=== PATIENT | male | born 1955 | race Caucasian/White ===

== ENCOUNTER 2017-01-30 20:05 | Inpatient (IN) | payer BC, OTHER ==
[~2017-01-30] VITALS: Ht 170.2 cm; Wt 76.7 kg
[~2017-01-30 20:05] MED LIST: CLRD24 PO
[2017-01-30] MEDS ORDERED: ALUMINUM/MAGNESIUM SUSP 30 ML UDC PO STA (20:52)
[2017-01-30] MEDS ORDERED: ASPIRIN 81 MG CHEW PO STA (20:52)
--- NOTE | 2017-01-30 21:03 | EMERGENCY ROOM VISIT NOTE ---
History Report prepared by Isac: Mara Morales Under the Supervision of: Dr. Evaristo Zuleta D.O. First contact with patient: 20:50 Chief Complaint: CHEST PAIN Stated Complaint: BURNING IN CHEST,ARM DISCOMFORT,SORE THROAT Nursing Triage Summary: Patient states "I had some trouble with my left arm. I was running and I had trouble when I was breathing. Like it was burning. It got so bad I had to quit running and that's never happened." Denies chest pain, shortness of breath, nausea, and diaphoresis. Patient reports this is third episode. History of Present Illness The patient is a 61 year old male who presents to the Emergency Room with complaints of resolved burning sensation in chest beginning just prior to arrival. The patient states that he is an avid runner. The past 3 times he has gone for a run he begins to develop this burning sensation in the chest with pain going into his left arm. The patient notes that each of these 3 episodes have worsened in severity with tonight being the worst. He notes that the pain begins to set in on the 1/2 mile ghada. The pain stays in his arm for a while even after he stops running. The patient denies cardiac history, recent traveling, shortness of breath or urinary symptoms. 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 Review of Systems See HPI for pertinent positives & negatives. A total of 10 systems reviewed and were otherwise negative. Past Medical & Surgical Medical Problems: (1) Diverticulitis Family History Diabetes mellitus Hypertension Social History Smoking Status: Never Smoker Alcohol Use: occasionally Drug Use: none Housing Status: lives with family Occupation Status: employed Current/Historical Medications Scheduled Aspirin (Aspirin Ec), 81 MG PO DAILY Cholecalciferol (Vitamin D3), 1,000 INTER.UNIT PO DAILY Multivitamins/Minerals (Mvi With Minerals), 1 TAB PO DAILY Vitamin E (Vitamin E 400 Iu), 400 INTER.UNIT PO DAILY Allergies Coded Allergies: No Known Allergies (Unverified , 03/10/15) Physical Exam Vital Signs Date Time Temp Pulse Resp B/P Pulse Ox O2 Delivery O2 Flow Rate FiO2 01/30/17 23:02 63 16 115/79 96 Room Air 01/30/17 22:18 75 01/30/17 21:37 99 Room Air 01/30/17 21:37 99 Room Air 01/30/17 21:24 83 16 121/77 96 Room Air 01/30/17 20:10 37.1 84 18 142/89 96 Room Air Physical Exam GENERAL: Patient is awake, alert, and in no acute distress. Patient is resting comfortably and showing no signs of anxiety EYES: The conjunctivae are clear. The pupils are round and reactive. EARS, NOSE, MOUTH AND THROAT: The nose is without any evidence of any deformity. Mucous membranes are moist tongue is midline NECK: The neck is nontender and supple. RESPIRATORY: Normal respiratory effort is noted there is no evidence of wheezing rhonchi or rales CARDIOVASCULAR: Regular rate and rhythm noted there no murmurs rubs or gallops normal S1 normal S2 GASTROINTESTINAL: The abdomen is soft. Bowel sounds are present in all quadrants. Abdomen is nontender MUSCULOSKELETAL/EXTREMITIES: There is no evidence of gross deformity full range of motion is noted in the hips and shoulders SKIN: There is no obvious evidence of any rash. There are no petechiae, pallor or cyanosis noted. NEUROLOGIC: Patient is awake alert and oriented x3 Medical Decision & Procedures ER Provider Diagnostic Interpretation: X-ray results as stated below per interpretation by me and the radiologist. CHEST ONE VIEW PORTABLE CLINICAL HISTORY: Atypical chest pain COMPARISON STUDY: August 2011 FINDINGS: The cardiac and mediastinal contours are normal. There is no evidence of focal pulmonary consolidation. There is no evidence of failure. No pleural effusions are visualized.[ IMPRESSION: No active disease in the chest. Electronically signed by: Rayray Meyers M.D. 01/30/2017 9:33 PM Dictated Date/Time: 01/30/2017 9:33 PM Laboratory Results 01/30/17 21:15 Red Blood Count 5.34, Mean Corpuscular Volume 86.1, Mean Corpuscular Hemoglobin 30.7, Mean Corpuscular Hemoglobin Concent 35.7, Mean Platelet Volume 8.7, Neutrophils (%) (Auto) 61.6, Lymphocytes (%) (Auto) 24.4, Monocytes (%) (Auto) 10.0, Eosinophils (%) (Auto) 3.3, Basophils (%) (Auto) 0.5, Neutrophils # (Auto ) 3.94, Lymphocytes # (Auto) 1.56, Monocytes # (Auto) 0.64, Eosinophils # (Auto ) 0.21, Basophils # (Auto) 0.03 01/30/17 21:15 Test 01/30/17 21:15 01/30/17 21:21 White Blood Count 6.39 K/uL (4.8-10.8) Red Blood Count 5.34 M/uL (4.7-6.1) Hemoglobin 16.4 g/dL (14.0-18.0) Hematocrit 46.0 % (42-52) Mean Corpuscular Volume 86.1 fL (80-100) Mean Corpuscular Hemoglobin 30.7 pg (25-34) Mean Corpuscular Hemoglobin Concent 35.7 g/dl (32-36) Platelet Count 181 K/uL (130-400) Mean Platelet Volume 8.7 fL (7.4-10.4) Neutrophils (%) (Auto) 61.6 % Lymphocytes (%) (Auto) 24.4 % Monocytes (%) (Auto) 10.0 % Eosinophils (%) (Auto) 3.3 % Basophils (%) (Auto) 0.5 % Neutrophils # (Auto) 3.94 K/uL (1.4-6.5) Lymphocytes # (Auto) 1.56 K/uL (1.2-3.4) Monocytes # (Auto) 0.64 K/uL (0.11-0.59) Eosinophils # (Auto) 0.21 K/uL (0-0.5) Basophils # (Auto) 0.03 K/uL (0-0.2) RDW Standard Deviation 39.3 fL (36.4-46.3) RDW Coefficient of Variation 12.5 % (11.5-14.5) Immature Granulocyte % (Auto) 0.2 % Immature Granulocyte # (Auto) 0.01 K/uL (0.00-0.02) Prothrombin Time 9.9 SECONDS (9.0-12.0) Prothromb Time International Ratio 0.9 (0.9-1.1) Activated Partial Thromboplast Time 27.8 SECONDS (21.0-31.0) Partial Thromboplastin Ratio 1.1 Anion Gap 10.0 mmol/L (3-11) Est Creatinine Clear Calc Drug Dose 65.1 ml/min Estimated GFR () 82.9 Estimated GFR (Non- 71.6 BUN/Creatinine Ratio 18.7 (10-20) Calcium Level 9.1 mg/dl (8.5-10.1) Total Bilirubin 0.3 mg/dl (0.2-1) Direct Bilirubin 0.1 mg/dl (0-0.2) Aspartate Amino Transf (AST/SGOT) 22 U/L (15-37) Alanine Aminotransferase (ALT/SGPT) 30 U/L (12-78) Alkaline Phosphatase 94 U/L (45-117) Total Creatine Kinase 106 U/L (39-308) Creatine Kinase MB 3.0 ng/ml (0.5-3.6) Creatine Kinase MB Ratio 2.8 (0-3.0) Total Protein 7.3 gm/dl (6.4-8.2) Albumin 3.8 gm/dl (3.4-5.0) Lipase 198 U/L (73-393) Bedside Troponin I 1.050 ng/ml (0-0.045) Laboratory results per my review. Medications Administered Medications (Trade) Dose Ordered Sig/Leni Route Start Time Stop Time Status Last Admin Dose Admin Aspirin (Aspirin Chew) 324 mg NOW STAT PO 01/30/17 20:52 01/30/17 20:54 DC 01/30/17 20:52 324 MG Al Hydroxide/Mg Hydroxide (Maalox Susp) 30 ml NOW STAT PO 01/30/17 20:52 01/30/17 20:54 DC 01/30/17 20:52 30 ML Heparin Sodium/ Dextrose 1 ea NOW STAT N/A 01/30/17 21:48 01/30/17 21:49 DC 01/30/17 21:48 1 EA Heparin Sodium/ Dextrose (Heparin 25,000 Unit/500ml D5W) 25,000 unit STK-MED ONCE .ROUTE 01/30/17 22:09 01/30/17 22:10 DC 01/30/17 22:48 25,000 UNIT Heparin Sodium (Porcine) (Heparin Sq 5000 Unit/0.5ml) 10,000 unit STK-MED ONCE .ROUTE 01/30/17 22:09 01/30/17 22:10 DC 01/30/17 22:49 6,000 UNIT ECG Indication: chest pain Rate (beats per minute): 77 Rhythm: normal sinus Findings: nonspecific-ST abn (none), no ectopy Change: no significant change (from 08/12/11) ED Course 2052: The patient was evaluated in room B4. A complete history and physical examination were performed. 2051: Maalox Susp 30 ml PO, Aspirin Chew 324 mg PO. 2147: Heparin Sodium/ Dextrose 1 ea N/A. 2148: I spoke with Dr. Joslyn Winters. He recommends adding a beta fauzia to the patient's regimen. 2226: I discussed the patient's case with Dr. Graff - [facility]. The patient will be evaluated for further management. 2230: Upon reevaluation, the patient is hemodynamically stable. I discussed results and treatment plan with the patient. He verbalizes agreement and understanding. I spoke with Dr. Graff of the [facility]. The patient will be evaluated for further management and care. 0900: Lopressor Tab 25 mg PO. Medical Decision Differential diagnosis: Etiologies such as cardiac ischemia, aortic dissection, pulmonary embolism, pneumonia, pneumothorax, musculoskeletal, infections, pericarditis, myocarditis , esophageal rupture, gastrointestinal, as well as others were entertained. Nursing notes reviewed. The patient is a 61-year-old male who presented to the emergency department for an evaluation of chest pain. The patient describes substernal chest pain that he described as a "burning". He states that this pain radiates to his arms. He started noticing this pain a few days ago when he was trying to run. The patient states that over the last few episodes when he was trying to run the chest pain would occur with less and less exertion and was relieved with rest. The patient has no pain at this time. His EKG does not show any acute change from previous however his troponin was elevated. I do feel this represents an anginal pattern. The patient was treated with aspirin in the emergency department. He was also given a beta fauzia as well as IV heparin. I discussed the patient's laboratory and radiographic studies with him. I also discussed the limitations of the emergency department workup for chest pain with him. I discussed his case with the on-call [facility] refrigeration mechanic helper as well as the on -call [facility] hospitalist group. They've agreed to evaluate the patient in the emergency department for further management and disposition. Consults Time Called: 2145 Consulting Physician: Dr. Joslyn Winters Returned Call: [address] Fragin - Cardiology. He recommends adding a beta fauzia to the patient's regimen. Additional Consults: Time Called: 2224 Consulted Physician: Dr. Dajuan SHELBY Returned Call: 2226 Additional Comments: I discussed the patient's case with Dr. Dajuan SHELBY. The patient will be evaluated for further management. Impression Primary Impression: NSTEMI (non-ST elevated myocardial infarction) Additional Impressions: Substernal precordial chest pain Elevated troponin Critical Care I have personally spent greater than 45 minutes of critical care time in the direct management of this patient. This includes bedside care, interpretation of diagnostic studies, and testing, discussion with consultants, patient, and family members, and other required patient management activities. This 45 minutes is in excess of all separately billable procedures. Scribe Attestation The scribe's documentation has been prepared under my direction and personally reviewed by me in its entirety. I confirm that the note above accurately reflects all work, treatment, procedures, and medical decision making performed by me. Departure Information Dispostion Being Evaluated By Hospitalist Referrals Dustin Paulino M.D. (PCP) Problem Qualifiers
[2017-01-30 21:26] LABS: BASO % 0.5 %; BASO ABS # 0.03 K/uL (0-0.2); COMPLETE YES; EOS % 3.3 %; IG% 0.2 %; LYMPH % 24.4 %; LYMPH ABS # 1.56 K/uL (1.2-3.4); MEAN CELL VOLUME 86.1 fL (80-100); MEAN CORPUSCULAR HEMOGLOBIN 30.7 pg (25-34); MEAN CORPUSCULAR HGB CONC 35.7 g/dl (32-36); MEAN PLATELET VOLUME 8.7 fL (7.4-10.4); NEUT % 61.6 %; PLATELET COUNT 181 K/uL (130-400); RED BLOOD COUNT 5.34 M/uL (4.7-6.1); WHITE BLOOD COUNT 6.39 K/uL (4.8-10.8)
--- NOTE | 2017-01-30 21:35 | DIAGNOSTIC IMAGING REPORT ---
CHEST ONE VIEW PORTABLE CLINICAL HISTORY: Atypical chest pain COMPARISON STUDY: August 2011 FINDINGS: The cardiac and mediastinal contours are normal. There is no evidence of focal pulmonary consolidation. There is no evidence of failure. No pleural effusions are visualized.[ IMPRESSION: No active disease in the chest. Electronically signed by: Rayray Meyers M.D. 01/30/2017 9:33 PM Dictated Date/Time: 01/30/2017 9:33 PM
[2017-01-30 21:38] LABS: INR 0.9 (0.9-1.1); PARTIAL THROMBOPLASTIN RATIO 1.1; PROTHROMBIN TIME (PATIENT) 9.9 SECONDS (9.0-12.0)
[2017-01-30] MEDS ORDERED: CHOL1000 PO (21:55)
[2017-01-30] MEDS ORDERED: ASPI81TA28 PO (21:55)
[2017-01-30] MEDS ORDERED: VITA400C3 PO (21:55)
[2017-01-30] MEDS ORDERED: MULT-513 PO (21:55)
[2017-01-30] MEDS ORDERED: HEPARIN SOD 5000 UNIT/0.5 ML CARP ONE (22:09)
[2017-01-30] MEDS ORDERED: HEPARIN 25000 UNIT/500 ML D5W ONE (22:09)
[2017-01-30 22:19] LABS: CALCIUM 9.1 mg/dl (8.5-10.1)
[2017-01-30] MEDS ORDERED: POLYETHYLENE (MIRALAX) 17 GM PACK PO PRN (22:45)
[2017-01-30] MEDS ORDERED: NITROGLYCERIN 0.4 MG SL PER TAB CHARGE SL PRN (22:45)
[2017-01-30] MEDS ORDERED: ACETAMINOPHEN 325 MG TAB PO PRN (22:45)
[2017-01-30] MEDS ORDERED: ZOLPIDEM TARTRATE 5 MG TAB PO PRN (22:45)
[2017-01-30] MEDS ORDERED: MoRPHine SULFATE 2 MG/ML CARP IV PRN (22:45)
[2017-01-30] MEDS ORDERED: MAGNESIUM HYDROXIDE SUSP 30 ML UDC PO PRN (22:45)
[2017-01-30] MEDS ORDERED: ALUMINUM/MAGNESIUM/SIMETH (MAALOX MAX) 30 ML UDC PO PRN (22:45)
[2017-01-30] MEDS ORDERED: ONDANSETRON INJ 2 MG/ML 2 ML VIAL IV PRN (22:45)
--- NOTE | 2017-01-30 22:56 | History and Physical ---
History & Physical Date & Time of Service: Jan 30, 2017 at 22:46 Chief Complaint: Burning In Chest,Arm Discomfort,Sore Throat Primary Care Physician: Dustin Paulino M.D. History of Present Illness Source: patient 61 y/o M who denies active medical issues. He runs 3.5 miles daily. Over the past week he has had a burning sensation in his chest when running. He was unable to complete his run today due to burning, SOB and pain in his L arm. His symptoms resolved with rest. He presented to the hospital where an EKG was within normal limits. An initial troponin however was elevated at 1.0. He denies any active symptoms on admission. Past Medical/Surgical History Denies a history of HTN, HPL, CAD History of diverticulitis Family History Diabetes mellitus Hypertension Father with CAD - at age 94 Social History Social drinker - dose not smoke Smoking Status: Never Smoker Drug Use: none Housing status: lives with family Occupational Status: employed Multi-Drug Resistant Organisms History of MDRO: No Allergies Coded Allergies: No Known Allergies (Unverified , 03/10/15) Home Medications Scheduled Aspirin (Aspirin Ec), 81 MG PO DAILY Cholecalciferol (Vitamin D3), 1,000 INTER.UNIT PO DAILY Multivitamins/Minerals (Mvi With Minerals), 1 TAB PO DAILY Vitamin E (Vitamin E 400 Iu), 400 INTER.UNIT PO DAILY Review of Systems Constitutional: No chills, No fever, No sweats Eyes: No eye pain, No worsening of vision ENT: No hearing loss, No nasal symptoms Respiratory: + shortness of breath, No cough, No sputum, No wheezing Cardiovascular: + chest pain, + problem reported (radiation to L arm), No PND, No orthopnea Abdomen: No nausea, No pain, No vomiting Musculoskeletal: No joint pain, No muscle pain Genitourinary - Male: No dysuria, No hematuria, No urinary frequency, No urinary urgency Neurologic: No memory loss, No paralysis, No weakness Psychiatric: No depression symptoms Endocrine: No fatigue Hematologic / Lymphatic: No abnormal bleeding/bruising Integumentary: No rash Allergic / Immunologic: No environmental allergies Physical Exam Vital Signs Date Time Temp Pulse Resp B/P Pulse Ox O2 Delivery O2 Flow Rate FiO2 01/30/17 22:18 75 01/30/17 21:37 99 Room Air 01/30/17 21:37 99 Room Air 4/27/17 21:24 83 16 121/77 96 Room Air 01/30/17 20:10 37.1 84 18 142/89 96 Room Air General Appearance: WD/WN, no apparent distress Head: normocephalic Eyes: normal inspection, PERRL, EOMI ENT: normal ENT inspection, pharynx normal Neck: supple, no JVD Respiratory/Chest: chest non-tender, lungs clear, normal breath sounds, no respiratory distress, no accessory muscle use Cardiovascular: regular rate, rhythm, no edema, no gallop, no JVD, no murmur, normal peripheral pulses Abdomen/GI: normal bowel sounds, non tender, soft Back: normal inspection, no CVA tenderness Extremities/Musculoskelatal: normal inspection, no calf tenderness, normal capillary refill, no pedal edema, normal range of motion 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, no motor/sensory deficits, alert, normal mood/affect, normal reflexes, oriented x 3 Skin: normal color, warm/dry Diagnostics Laboratory Results Results Past 24 Hours Test 01/30/17 20:52 01/30/17 21:15 01/30/17 21:21 Range/Units Creatine Kinase MB Ratio 0-3.0 White Blood Count 6.39 4.8-10.8 K/uL Red Blood Count 5.34 4.7-6.1 M/uL Hemoglobin 16.4 14.0-18.0 g/dL Hematocrit 46.0 42-52 % Mean Corpuscular Volume 86.1 80-100 fL Mean Corpuscular Hemoglobin 30.7 25-34 pg Mean Corpuscular Hemoglobin Concent 35.7 32-36 g/dl Platelet Count 181 130-400 K/uL Mean Platelet Volume 8.7 7.4-10.4 fL Neutrophils (%) (Auto) 61.6 % Lymphocytes (%) (Auto) 24.4 % Monocytes (%) (Auto) 10.0 % Eosinophils (%) (Auto) 3.3 % Basophils (%) (Auto) 0.5 % Neutrophils # (Auto) 3.94 1.4-6.5 K/uL Lymphocytes # (Auto) 1.56 1.2-3.4 K/uL Monocytes # (Auto) 0.64 0.11-0.59 K/uL Eosinophils # (Auto) 0.21 0-0.5 K/uL Basophils # (Auto) 0.03 0-0.2 K/uL RDW Standard Deviation 39.3 36.4-46.3 fL RDW Coefficient of Variation 12.5 11.5-14.5 % Immature Granulocyte % (Auto) 0.2 % Immature Granulocyte # (Auto) 0.01 0.00-0.02 K/uL Prothrombin Time 9.9 9.0-12.0 SECONDS Prothromb Time International Ratio 0.9 0.9-1.1 Activated Partial Thromboplast Time 27.8 21.0-31.0 SECONDS Partial Thromboplastin Ratio 1.1 Sodium Level 143 136-145 mmol/L Potassium Level 4.0 3.5-5.1 mmol/L Calcium Level 9.1 8.5-10.1 mg/dl Bedside Troponin I 1.050 0-0.045 ng/ml Normal EKG Impression Assessment and Plan 61 y/o M who denies active medical issues. He runs 3.5 miles daily. Over the past week he has had a burning sensation in his chest when running. He was unable to complete his run today due to burning, SOB and pain in his L arm. His symptoms resolved with rest. He presented to the hospital where an EKG was within normal limits. An initial troponin however was elevated at 1.0. He denies any active symptoms on admission. Pt placed on full-dose Heparin, ASA, statin - cardiology notified and will be evaluated for a cath. I have discussed this in detail with the pt. Full code - Full dose Heparin Total time for this admit including review of labs, meds, EKG - discussion with pt and ER attending - 30 min VTE Prophylaxis VTE Risk Assessment Done? Y/N: Yes Risk Level: Low
[2017-01-30 23:01] LABS: BUN/CREATININE RATIO 18.7 (10-20); CKMB/CK RATIO 2.8 (0-3.0); CREATININE 1.1 mg/dl (0.60-1.40)
[2017-01-30 23:43] VITALS: BP 132/81; PULSE 62; TEMP 36.7; O2SAT 96; Ht 170.2 cm; Wt 76.7 kg
[2017-01-31] VITALS (14 sets, daily range): BP systolic 113–127; BP diastolic 67–79; PULSE 57–81; TEMP 36.5–37; O2SAT 92–98
[2017-01-31] MEDS: SODIUM CHLORIDE 0.9% 1000ML 1,000 ML IV SCH (01:00)
[2017-01-31] MEDS ORDERED: HEPARIN 25,000 UNIT/500ML D5W 500 ML IV PRN (01:00)
[2017-01-31 05:35] LABS: PARTIAL THROMBOPLASTIN RATIO 2.3
[2017-01-31] MEDS: ASPIRIN 81 MG ECTAB PO SCH (09:00)
[2017-01-31] MEDS ORDERED: METOPROLOL TARTRATE 25 MG TAB PO SCH (09:00)
[2017-01-31 09:46] LABS: CHOLESTEROL/HDL RATIO 2.3
--- NOTE | 2017-01-31 11:46 | Hospitalist Progress Note ---
Hospitalist Progress Note Date of Service Jan 31, 2017. (Khadra Combs PA-C) Subjective Pt evaluation today including: conversation w/ patient, physical exam, chart review, lab review, review of studies, review of inpatient medication list Patient reports no further chest discomfort. He denies any shortness of breath. He does admit to feeling dizzy earlier this week. No dizziness since admission. He denies any nausea, sweaty or clammy feeling. Additional Comments: 6 system review negative. Please see pertinent positives in the history of present illness section. (Khadra Combs PA-C) Objective Vital Signs Date Time Temp Pulse Resp B/P Pulse Ox O2 Delivery O2 Flow Rate FiO2 01/31/17 11:18 36.6 60 16 117/72 98 Room Air 01/31/17 08:33 36.8 68 16 115/69 97 Room Air 01/31/17 08:00 Room Air 01/31/17 07:33 36.8 68 16 115/69 97 Room Air 01/31/17 04:00 Room Air 01/31/17 03:33 36.5 59 16 122/74 98 Room Air 01/30/17 23:59 Room Air 01/30/17 23:43 36.7 62 16 132/81 96 Room Air 01/30/17 23:02 63 16 115/79 96 Room Air 01/30/17 22:18 75 01/30/17 21:37 99 Room Air 01/30/17 21:37 99 Room Air 01/30/17 21:24 83 16 121/77 96 Room Air 01/30/17 20:10 37.1 84 18 142/89 96 Room Air (Khadra Combs PA-C) Physical Exam General Appearance: no apparent distress Neck: no JVD Respiratory/Chest: + pertinent finding (few crackles at the right base) Cardiovascular: regular rate, rhythm Abdomen: normal bowel sounds, non tender, soft Extremities: non-tender, no pedal edema Neurologic/Psychiatric: no motor/sensory deficits, oriented x 3 Skin: warm/dry (Khadra Combs PA-C) Laboratory Results 01/30/17 21:15 Red Blood Count 5.34, Mean Corpuscular Volume 86.1, Mean Corpuscular Hemoglobin 30.7, Mean Corpuscular Hemoglobin Concent 35.7, Mean Platelet Volume 8.7, Neutrophils (%) (Auto) 61.6, Lymphocytes (%) (Auto) 24.4, Monocytes (%) (Auto) 10.0, Eosinophils (%) (Auto) 3.3, Basophils (%) (Auto) 0.5, Neutrophils # (Auto ) 3.94, Lymphocytes # (Auto) 1.56, Monocytes # (Auto) 0.64, Eosinophils # (Auto ) 0.21, Basophils # (Auto) 0.03 01/30/17 21:15 Test 01/30/17 21:15 01/30/17 21:21 01/31/17 04:56 01/31/17 08:30 White Blood Count 6.39 K/uL (4.8-10.8) Red Blood Count 5.34 M/uL (4.7-6.1) Hemoglobin 16.4 g/dL (14.0-18.0) Hematocrit 46.0 % (42-52) Mean Corpuscular Volume 86.1 fL (80-100) Mean Corpuscular Hemoglobin 30.7 pg (25-34) Mean Corpuscular Hemoglobin Concent 35.7 g/dl (32-36) Platelet Count 181 K/uL (130-400) Mean Platelet Volume 8.7 fL (7.4-10.4) Neutrophils (%) (Auto) 61.6 % Lymphocytes (%) (Auto) 24.4 % Monocytes (%) (Auto) 10.0 % Eosinophils (%) (Auto) 3.3 % Basophils (%) (Auto) 0.5 % Neutrophils # (Auto) 3.94 K/uL (1.4-6.5) Lymphocytes # (Auto) 1.56 K/uL (1.2-3.4) Monocytes # (Auto) 0.64 K/uL (0.11-0.59) Eosinophils # (Auto) 0.21 K/uL (0-0.5) Basophils # (Auto) 0.03 K/uL (0-0.2) RDW Standard Deviation 39.3 fL (36.4-46.3) RDW Coefficient of Variation 12.5 % (11.5-14.5) Immature Granulocyte % (Auto) 0.2 % Immature Granulocyte # (Auto) 0.01 K/uL (0.00-0.02) Prothrombin Time 9.9 SECONDS (9.0-12.0) Prothromb Time International Ratio 0.9 (0.9-1.1) Anion Gap 10.0 mmol/L (3-11) Est Creatinine Clear Calc Drug Dose 65.1 ml/min Estimated GFR () 82.9 Estimated GFR (Non- 71.6 BUN/Creatinine Ratio 18.7 (10-20) Calcium Level 9.1 mg/dl (8.5-10.1) Total Bilirubin 0.3 mg/dl (0.2-1) Direct Bilirubin 0.1 mg/dl (0-0.2) Aspartate Amino Transf (AST/SGOT) 22 U/L (15-37) Alanine Aminotransferase (ALT/SGPT) 30 U/L (12-78) Alkaline Phosphatase 94 U/L (45-117) Total Creatine Kinase 106 U/L (39-308) Creatine Kinase MB 3.0 ng/ml (0.5-3.6) Creatine Kinase MB Ratio 2.8 (0-3.0) Total Protein 7.3 gm/dl (6.4-8.2) Albumin 3.8 gm/dl (3.4-5.0) Lipase 198 U/L (73-393) Bedside Troponin I 1.050 ng/ml (0-0.045) Activated Partial Thromboplast Time 60.6 SECONDS (21.0-31.0) Partial Thromboplastin Ratio 2.3 Troponin I 0.598 ng/ml (0-0.045) Triglycerides Level 91 mg/dl (0-150) Cholesterol Level 168 mg/dl (0-200) HDL Cholesterol 74 mg/dl LDL Cholesterol, Calculated 76 mg/dl VLDL Cholesterol, Calculated 18 mg/dl Cholesterol/HDL Ratio 2.3 Last 24 Hours Test 01/30/17 21:15 01/30/17 21:21 01/31/17 02:06 01/31/17 04:56 White Blood Count 6.39 K/uL Red Blood Count 5.34 M/uL Hemoglobin 16.4 g/dL Hematocrit 46.0 % Mean Corpuscular Volume 86.1 fL Mean Corpuscular Hemoglobin 30.7 pg Mean Corpuscular Hemoglobin Concent 35.7 g/dl Platelet Count 181 K/uL Mean Platelet Volume 8.7 fL Neutrophils (%) (Auto) 61.6 % Lymphocytes (%) (Auto) 24.4 % Monocytes (%) (Auto) 10.0 % Eosinophils (%) (Auto) 3.3 % Basophils (%) (Auto) 0.5 % Neutrophils # (Auto) 3.94 K/uL Lymphocytes # (Auto) 1.56 K/uL Monocytes # (Auto) 0.64 K/uL Eosinophils # (Auto) 0.21 K/uL Basophils # (Auto) 0.03 K/uL RDW Standard Deviation 39.3 fL RDW Coefficient of Variation 12.5 % Immature Granulocyte % (Auto) 0.2 % Immature Granulocyte # (Auto) 0.01 K/uL Prothrombin Time 9.9 SECONDS Prothromb Time International Ratio 0.9 Activated Partial Thromboplast Time 27.8 SECONDS 60.6 SECONDS Partial Thromboplastin Ratio 1.1 2.3 Sodium Level 143 mmol/L Potassium Level 4.0 mmol/L Chloride Level 103 mmol/L Carbon Dioxide Level 30 mmol/L Anion Gap 10.0 mmol/L Blood Urea Nitrogen 21 mg/dl Creatinine 1.10 mg/dl Est Creatinine Clear Calc Drug Dose 65.1 ml/min Estimated GFR () 82.9 Estimated GFR (Non- 71.6 BUN/Creatinine Ratio 18.7 Random Glucose 98 mg/dl Calcium Level 9.1 mg/dl Total Bilirubin 0.3 mg/dl Direct Bilirubin 0.1 mg/dl Aspartate Amino Transf (AST/SGOT) 22 U/L Alanine Aminotransferase (ALT/SGPT) 30 U/L Alkaline Phosphatase 94 U/L Total Creatine Kinase 106 U/L Creatine Kinase MB 3.0 ng/ml Creatine Kinase MB Ratio 2.8 Total Protein 7.3 gm/dl Albumin 3.8 gm/dl Lipase 198 U/L Bedside Troponin I 1.050 ng/ml Troponin I 0.957 ng/ml Test 01/31/17 08:30 Troponin I 0.598 ng/ml Triglycerides Level 91 mg/dl Cholesterol Level 168 mg/dl HDL Cholesterol 74 mg/dl LDL Cholesterol, Calculated 76 mg/dl VLDL Cholesterol, Calculated 18 mg/dl Cholesterol/HDL Ratio 2.3 (Khadra Combs, PAEnrikeC) Assessment and Plan 61-year-old male presented to the emergency department complaining of chest burning radiating down his left arm with exertion. No known history of coronary artery disease, however the patient has a strong family history. Stable angina-troponin is mildly elevated. No significant ST elevation noted on EKG. -Continue heparin drip -Continue nitroglycerin, ASA and morphine. -cardiology consult appreciated--> cardiac catheterization planned for today DVT prophylaxis -Heparin drip -Teds, SCDs CODE STATUS -LEVEL I FULL CODE (Khadra Combs, DOMENIC) Reviewed: Pt Seen/Exam by Me (Maggie Francis MD) History Physician Director Of Channel Marketing Supervision Note: I interviewed and examined the patient. Discussed with SYDNI Combs and agree with findings and plan as documented in the note. Any exceptions or clarifications are listed here: Patient just returned from cardiac catheterization and he had a stent placed in the LAD for 99% stenosis. He denies any chest pain at this time and is eating dinner, feeling well. VSS, telemetry reviewed and is in normal sinus rhythm NAD, AAO 3 RRR, no murmurs rubs or gallops Clear to auscultation bilaterally, breathing unlabored Abdomen positive bowel sounds soft nontender nondistended Extremities no edema, 2+ dorsalis pedis pulses, TR band in place on the right wrist with no edema Skin no rashes 61-year-old male with no significant medical history, here with acute coronary syndrome, non-STEMI, now status post drug-eluting stent in the mid LAD for 99% stenosis. He has a family history only of paternal uncles and grandfather with coronary artery disease in old age, his father had a pacemaker but lived to be 94. His lipid panels have always been excellent and he is a nonsmoker, no hypertension, no diabetes. -Loaded with Plavix and will continue aspirin and Plavix for at least 1 year -Continue metoprolol, statin high intensity -Is being referred to cardiac rehabilitation -Continue monitoring on telemetry for arrhythmias -Cardiology consultation appreciated and he will follow-up with Dr. Lenz in the office as directed -Expect discharge to home tomorrow Documented By: Maggie Francis (Maggie Francis MD)
[2017-01-31] MEDS ORDERED: HEPARIN SOD (PORCINE) 1000 UNIT/ML 10 ML VIAL ONE (15:03)
[2017-01-31] MEDS ORDERED: NiCARDipine HCL INJ 2.5 MG/ML 10 ML AMP ONE (15:03)
[2017-01-31] MEDS ORDERED: NITROGLYCERIN/D5W 100MCG/ML 20ML SYR ONE (15:04)
[2017-01-31] MEDS ORDERED: MIDAZOLAM HCL 1 MG/ML 2ML VIAL ONE (15:05)
[2017-01-31] MEDS ORDERED: FENTANYL CITRATE INJ 50 MCG/1 ML 2 ML VIAL ONE (15:05)
[2017-01-31] MEDS ORDERED: CLOPIDOGREL BISULFATE 300 MG TAB PO ONE (16:10)
[2017-01-31] MEDS ORDERED: ACETAMINOPHEN 325 MG TAB PO PRN (16:30)
[2017-01-31] MEDS ORDERED: SODIUM CHLORIDE 0.9% 1000ML 1,000 ML IV SCH (16:30)
[2017-01-31] MEDS ORDERED: NITROGLYCERIN 0.4 MG SL PER TAB CHARGE SL PRN (16:30)
[2017-01-31] MEDS ORDERED: ONDANSETRON INJ 2 MG/ML 2 ML VIAL IV PRN (16:30)
--- NOTE | 2017-01-31 16:32 | Procedure Note ---
Pre-Mod Sedation Assessment General Date of Moderate Sedation: Jan 31, 2017. Vital Signs: Vital Signs Past 12 Hours Date Time Temp Pulse Resp B/P Pulse Ox O2 Delivery O2 Flow Rate FiO2 01/31/17 16:25 68 16 124/67 96 Room Air 01/31/17 16:20 66 16 122/67 96 Room Air 01/31/17 16:10 65 16 127/83 96 Room Air 01/31/17 12:00 Room Air 01/31/17 11:18 36.6 60 16 117/72 98 Room Air 01/31/17 08:33 36.8 68 16 115/69 97 Room Air 01/31/17 08:00 Room Air 01/31/17 07:33 36.8 68 16 115/69 97 Room Air Review Cardiovascular: regular rate, rhythm, no edema Abdomen: normal bowel sounds, non tender, soft Lungs: lungs clear, normal breath sounds Airway Class: II Pre-Sedation Airway Assessment Oral Cavity: WNL Able to Visualize Vocal Cords: Yes Short Thick Neck: No Hx of Sleep Apnea: No Smoking Status: Never Smoker Mallampati Classification: Class II ASA Classification: Class III Procedure Planning Contraindications-for Mod Sed: None Yes Notes The planned sedation has been discussed with the patient and consent obtained. I have identified the patient, determined the appropriateness of sedation and have assessed the patient immediately prior to the procedure. All medicine(s) and interventions are by my order.
--- NOTE | 2017-01-31 16:32 | Procedure Note ---
Post-Mod Sedation Assessment General Date of Moderate Sedation Jan 31, 2017. Vital Signs: Vital Signs Past 12 Hours Date Time Temp Pulse Resp B/P Pulse Ox O2 Delivery O2 Flow Rate FiO2 01/31/17 16:25 68 16 124/67 96 Room Air 01/31/17 16:20 66 16 122/67 96 Room Air 01/31/17 16:10 65 16 127/83 96 Room Air 01/31/17 12:00 Room Air 01/31/17 11:18 36.6 60 16 117/72 98 Room Air 01/31/17 08:33 36.8 68 16 115/69 97 Room Air 01/31/17 08:00 Room Air 01/31/17 07:33 36.8 68 16 115/69 97 Room Air Review - Discharge Criteria Vital Signs Stable: Yes Alert/Oriented/Conversant: Yes Returned to Baseline Mental St: Yes Nausea Absent/Minimal: Yes Pain/Discomfort/Absent/Minimal: Yes Normal/Baseline Respirations: Yes Pt Received D/C Instructions: N/A Prescriptions Given: None Specific Proced. D/C Criteria Distal Pulses Present (Cardiac: Yes Groin site assessed-Card Cath: N/A Voided Prior To Discharge: N/A Discharged Patients Adult Escort/Transportation: Yes
--- NOTE | 2017-01-31 16:45 | Cardiac Catheterization ---
Procedure Note Procedure Date Jan 31, 2017. Pre-Procedure Diagnosis Non STEMI AUC Score 8 Post-Procedure Diagnosis Severe CAD, Successful PCI, Normal Intracardiac Pressures Procedure(s) Performed Coronary Angiography, Left Heart Cath, Drug Eluting Stent Economic Analyst Dr. Lenz Body Worker(s) Glunt Estimated Blood Loss 15 Medication(s) Clopidogrel, Fentanyl, Heparin, Nitroglycerin, Versed, Lidocaine 1% Summary of Findings Indication: NSTEMI Access: 6Fr Right Radial Artery Catheters: Mackay, EBU 3.5 guide Findings: LM - Huge vessel, angiographically normal LAD - Large vessel, 99% focal stenosis in the mid segment just after take-off of 1st diagonal; distal luminal irregularities as vessel wraps around apex. Circumflex - Large caliber vessel, dominant, angiographically normal RCA - Small, non-dominant, luminal irregularities. LVEDP - 6 -- PCI -- Antithrombotic therapy: Heparin, Clopidogrel Procedure: LM cannulated with EBU 3.5 guide BMW wire passed across lesion into distal LAD Mid LAD lesion predilated with 3.0 compliant balloon and 3.0 NC balloon Dilated lesion stented with 4.0 x 23 Xience EASTON placed from 1st diagonal to just before 2nd diagonal. Stent post-dilated with 4.5 noncompliant balloon IC vasodilators administered for spasm Post procedure ARGELIA 3 flow, stent well expanded with minimal residual stenosis and no apparent cardiac complications. Arterial Closure: TR Band Summary: 1. NSTEMI 2. Severe single vessel coronary artery disease - 99% focal mid LAD stenosis - Other coronary arteries essentially angiographically normal 3. Normal intracardiac filling pressure 4. Successful PCI of mid LAD with 4.0 x 23 Xience EASTON (post-dilated with 4.5 NC balloon). 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 Jorgensen Consult cardiac Rehab Hemodynamics Rest Ao: 98/69/82 Final Ao: 97/66/80 LV: 105/6 Recommendations PCI without planned CABG Specimens None Radiation Exposure (mGy) 2691 Contrast (mls) 150 Visipaque Fluids (cc crystalloids) 100 NS Drains None Anesthesia Moderate Procedural Complication(s) None Disposition PCU ACC Data Cardiac Status Clinical evaluation leading to the procedure CAD Presntation: Non STEMI Anginal Classification: CCS IV Heart Failure: No Cardiogenic Shock w/in 24Hrs: No Cardiac Arrest w/in 24Hrs: No Imaging studies past 6 months: No Stress studies past 6 months: No Standard Exercise Stress Test: No Stress Echocardiogram: No Stress Testing w/SPECT MPI: No Cardiac CTA: No Coronary Anatomy Dominant: Left Left Main (% Stenosis): Normal LAD (% Stenosis): Mid (99%) Circumflex (% Stenosis): Normal RCA (% Stenosis): Normal Diagnostic Physician's Name: Carter Lenz MD Status: Urgent Closure Device Percutaneous Entry Location: Radial Closure Device: Radial Band Recommendations: PCI without planned CABG PCI Indication: PCI for high risk Non-STEMI Lesion Segment Name: Mid LAD Culprit Artery: Yes Stenosis Prior to Rx (%): 99 Chronic Total Occlusion: No IVUS: No FFR: No Pre-Procedure ARGELIA Flow: 3 Previously Treated Lesion: No Lesion Complexity: Non-High/Non-C Lesion Length (mm): 15 Thrombus Present: No Bifurcation Lesion: No Guidewire Across Lesion: Yes Guidewire: Stenosis Post-Procedure (%): 0 Post-Procedure ARGELIA Flow: 3 Device(s) Deployed: Yes Intraprocedure Events Significant Dissection: No Perforation: No
[2017-01-31] MEDS ORDERED: METOPROLOL SUCC 25MG EXT REL TAB PO SCH (21:00)
[2017-01-31] MEDS ORDERED: ATORVASTATIN 40 MG TAB PO SCH (21:00)
[2017-02-01] VITALS (7 sets, daily range): BP systolic 104–114; BP diastolic 67–69; PULSE 54–61; TEMP 36.8–37; O2SAT 96
[2017-02-01 07:07] LABS: BASO % 0.3 %; BASO ABS # 0.02 K/uL (0-0.2); COMPLETE YES; EOS % 2.7 %; HEMATOCRIT 46.3 % (42-52); LYMPH ABS # 1.47 K/uL (1.2-3.4); MEAN CELL VOLUME 86.4 fL (80-100); MEAN CORPUSCULAR HEMOGLOBIN 29.5 pg (25-34); MEAN CORPUSCULAR HGB CONC 34.1 g/dl (32-36); MEAN PLATELET VOLUME 8.7 fL (7.4-10.4); MONO % 7.7 %; NEUT % 64.3 %; PLATELET COUNT 166 K/uL (130-400); RED BLOOD COUNT 5.36 M/uL (4.7-6.1); WHITE BLOOD COUNT 5.88 K/uL (4.8-10.8)
[2017-02-01 07:18] LABS: PARTIAL THROMBOPLASTIN RATIO 1.1
[2017-02-01 07:43] LABS: BUN/CREATININE RATIO 16.7 (10-20); CALCIUM 8.3 mg/dl (8.5-10.1); CREATININE 0.84 mg/dl (0.60-1.40)
[2017-02-01] MEDS: ASPIRIN 81 MG ECTAB PO SCH (08:40)
[2017-02-01] MEDS ORDERED: CLOPIDOGREL BISULFATE 75 MG TAB PO SCH (09:00)
--- NOTE | 2017-02-01 09:48 | Cardiology Follow-Up ---
Subjective Subjective Date of Service: Feb 01, 2017. Pt evaluation today including: conversation w/ patient, physical exam, chart review, lab review, review of studies, conversation w/ storage consultant, review of inpatient medication list Additional Details: Patient feeling well this AM. No real chest pain. States mild discomfort in his chest which feels like gas. No events on telemetry. Problem List Medical Problems: (1) Elevated troponin Status: Acute (2) NSTEMI (non-ST elevated myocardial infarction) Status: Acute (3) Substernal precordial chest pain Status: Acute Review of Systems Constitutional: No chills, No fever Respiratory: No cough, No shortness of breath, No sputum, No wheezing Cardiac: + see HPI, No PND, No palpitations Abdomen: No nausea, No pain Neurologic: No memory loss Psychiatric: No depression symptoms Heme: No abnormal bleeding/bruising Endo: No fatigue Skin: No rash Objective Vital Signs Last Vital Signs Documentation Date Time Temp Pulse Resp B/P Pulse Ox O2 Delivery O2 Flow Rate FiO2 02/01/17 07:27 36.8 54 18 107/67 96 02/01/17 04:00 Room Air Physical Exam: General Appearance: no apparent distress Neck: no JVD Respiratory/Chest: lungs clear, + pertinent finding (few crackles at the right base) Cardiovascular: regular rate, rhythm, no JVD Abdomen: normal bowel sounds, non tender, soft Extremities: non-tender, no pedal edema, + pertinent finding (No access site complications. Intact distal pulse and sensation.) Neurologic/Psychiatric: no motor/sensory deficits, oriented x 3 Skin: warm/dry Assessment and Plan 1. NSTEMI 2. CAD s/p PCI with EASTON to LAD Patient doing well post procedure, hemodynamically/electrically stable. No real chest pain and ECG changes unlikely to represent stent thrombosis. From a cardiac standpoint OK for discharge today. Discharge home on ASA, plavix for at least 1 year. Continue current metoprolol and statin. Follow-up with Dr. Jorgensen in 2-3 weeks. Cardiac rehab as an outpatient. Medications: Current Inpatient Medications Medications (Trade) Dose Ordered Sig/Leni Route Start Time Stop Time Status Last Admin Dose Admin Acetaminophen (Tylenol Tab) 650 mg Q4H PRN PO 01/30/17 22:45 03/01/17 22:44 Al Hydrox/Mg Hydrox/Simethicone (Maalox Max Susp) 15 ml Q4H PRN PO 01/30/17 22:45 03/01/17 22:44 Magnesium Hydroxide (Milk Of Magnesia Susp) 30 ml Q12H PRN PO 01/30/17 22:45 03/01/17 22:44 Zolpidem Tartrate (Ambien Tab) 5 mg HSZ PRN PO 01/30/17 22:45 03/01/17 22:44 Ondansetron HCl (Zofran Inj) 4 mg Q6H PRN IV 01/30/17 22:45 03/01/17 22:44 Nitroglycerin (Nitrostat Tab) 0.4 mg UD PRN SL 01/30/17 22:45 03/01/17 22:44 Morphine Sulfate (MoRPHine SULFATE INJ) 2 mg Q30M PRN IV 01/30/17 22:45 02/13/17 22:44 Aspirin (Ecotrin Tab) 81 mg QAM PO 01/31/17 09:00 03/02/17 08:59 02/01/17 08:40 81 MG Polyethylene (Miralax Powder Packet) 17 gm DAILY PRN PO 01/30/17 22:45 03/01/17 22:44 Atorvastatin Calcium (Lipitor Tab) 40 mg HS PO 01/31/17 21:00 03/02/17 20:59 01/31/17 20:27 40 MG Metoprolol Succinate (Toprol Xl Tab) 12.5 mg HS PO 01/31/17 21:00 03/02/17 20:59 01/31/17 20:27 12.5 MG Nitroglycerin (Nitrostat Tab) 0.4 mg UD PRN SL 01/31/17 16:30 03/02/17 16:29 Ondansetron HCl (Zofran Inj) 4 mg Q6H PRN IV 01/31/17 16:30 03/02/17 16:29 Clopidogrel Bisulfate (plAVix TAB) 75 mg QAM PO 02/01/17 09:00 03/03/17 08:59 02/01/17 08:40 75 MG Acetaminophen (Tylenol Tab) 650 mg Q4H PRN PO 01/31/17 16:30 03/02/17 16:29 Lab Results: 02/01/17 06:52 Red Blood Count 5.36, Mean Corpuscular Volume 86.4, Mean Corpuscular Hemoglobin 29.5, Mean Corpuscular Hemoglobin Concent 34.1, Mean Platelet Volume 8.7, Neutrophils (%) (Auto) 64.3, Lymphocytes (%) (Auto) 25.0, Monocytes (%) (Auto) 7.7, Eosinophils (%) (Auto) 2.7, Basophils (%) (Auto) 0.3, Neutrophils # (Auto) 3.78, Lymphocytes # (Auto) 1.47, Monocytes # (Auto) 0.45, Eosinophils # (Auto) 0.16, Basophils # (Auto) 0.02 02/01/17 06:52 Test 01/31/17 15:46 02/01/17 06:52 Kaolin Activated Coagulation Time 229 SECONDS (94-140) White Blood Count 5.88 K/uL (4.8-10.8) Red Blood Count 5.36 M/uL (4.7-6.1) Hemoglobin 15.8 g/dL (14.0-18.0) Hematocrit 46.3 % (42-52) Mean Corpuscular Volume 86.4 fL (80-100) Mean Corpuscular Hemoglobin 29.5 pg (25-34) Mean Corpuscular Hemoglobin Concent 34.1 g/dl (32-36) Platelet Count 166 K/uL (130-400) Mean Platelet Volume 8.7 fL (7.4-10.4) Neutrophils (%) (Auto) 64.3 % Lymphocytes (%) (Auto) 25.0 % Monocytes (%) (Auto) 7.7 % Eosinophils (%) (Auto) 2.7 % Basophils (%) (Auto) 0.3 % Neutrophils # (Auto) 3.78 K/uL (1.4-6.5) Lymphocytes # (Auto) 1.47 K/uL (1.2-3.4) Monocytes # (Auto) 0.45 K/uL (0.11-0.59) Eosinophils # (Auto) 0.16 K/uL (0-0.5) Basophils # (Auto) 0.02 K/uL (0-0.2) RDW Standard Deviation 39.8 fL (36.4-46.3) RDW Coefficient of Variation 12.7 % (11.5-14.5) Immature Granulocyte % (Auto) 0.0 % Immature Granulocyte # (Auto) 0.00 K/uL (0.00-0.02) Activated Partial Thromboplast Time 27.8 SECONDS (21.0-31.0) Partial Thromboplastin Ratio 1.1 Anion Gap 5.0 mmol/L (3-11) Est Creatinine Clear Calc Drug Dose 85.3 ml/min Estimated GFR () 108.8 Estimated GFR (Non- 93.8 BUN/Creatinine Ratio 16.7 (10-20) Calcium Level 8.3 mg/dl (8.5-10.1)
[2017-02-01] MEDS ORDERED: LPT40 PO (13:12)
[2017-02-01] MEDS ORDERED: TPRSR25 PO (13:12)
[2017-02-01] MEDS ORDERED: PLV75 PO (13:12)
[2017-02-01] MEDS ORDERED: NTRSLP4 SL (13:12)
--- NOTE | 2017-02-01 13:15 | Discharge Instructions ---
Discharge Instructions Date of Service Feb 01, 2017. Admission Reason for Admission: Chest pain Discharge Discharge Diagnosis / Problem: NSTEMI Discharge Goals Goal(s): Improve disease control, Diagnostic testing, Therapeutic intervention Activity Recommendations Activity Limitations: as noted below Exercise/Sports Limitations: until after follow-up appointment Shower/Bathe: no limitations Driving or Machine Use: resume 1 day after discharge You will be enrolled in cardiac rehab. Please refrain from exercise until this starts. . Instructions / Follow-Up Instructions / Follow-Up Home Care: * Take your medications exactly as directed. Don't skip doses. * Remember that recovery after a heart attack takes time. Plan to rest for at lease 4-8 weeks while you recover. Then return to normal activity when your doctor says it's okay. * Ask your doctor about joining a heart rehabilitation program. * Tell your doctor if you are feeling depressed. Feelings of sadness are common after a heart attack, but it is important that you speak to someone if you are feeling overwhelmed by these feelings. * If you are having chest pain, call 911 for an ambulance. Do NOT drive yourself to the hospital. * Ask your family members to learn CPR. * Learn to take your own blood pressure and pulse. Keep a record of your results. Ask your doctor when you should seek emergency medical attention. He or she will tell you which blood pressure reading is dangerous. Lifestyle Changes: * Maintain a healthy weight. Get help to lose any extra pounds. * Cut back on salt. * Limit canned, dried, packaged, and fast foods. * Don't add salt to your food. * Season foods with herbs instead of salt when you cook. * Limit fatty foods. * Check your lipid levels regularly. (Your doctor can show you how to do this.) * Build up your activity according to your doctor's recommendation. * Ask your doctor when it's okay to resume sexual activity. * Tell your doctor about any erectile dysfunction (ED) medication you are taking. Some ED medications are not safe if you take certain heart medications. * Try to manage stress. Follow Up: It is important for you to keep your follow up appointments with your medical provider. Please follow up with Dr. Lenz of [facility] within 2-3 weeks. Please follow up with Dr. Paulino within 1-2 weeks. Current Hospital Diet Patient's current hospital diet: AHA Diet (Heart Healthy) Discharge Diet Recommended Diet: AHA Diet (Heart Healthy) Procedures Procedures Performed: Left heart catheterization Pending Studies Studies pending at discharge: no Laboratory Results Lipid Panel Test 01/31/17 08:30 Range/Units Triglycerides Level 91 0-150 mg/dl Cholesterol Level 168 0-200 mg/dl HDL Cholesterol 74 mg/dl Cholesterol/HDL Ratio 2.3 LDL Cholesterol, Calculated 76 mg/dl Medical Emergencies . Who to Call and When: Medical Emergencies: If at any time you feel your situation is an emergency, please call 911 immediately. Call 911 immediately or go to your nearest Emergency Room if you experience any of the following: Warning Signs and Symptoms of a Heart Attack * Chest pain that is not relieved by medication * Shortness of breath . Non-Emergent Contact Non-Emergency issues call your: Primary Care Provider, Die Presser Call Non-Emergent contact if: your pain is not controlled, your pain is worsening, your pain is unusual for you, your pain is concerning you, wound has increased drainage, wound has increased redness, wound has increased pain, you have any medication questions . . "Provider Documentation" section prepared by Maggie Francis. . AMI Core Measures Reason no ASA as I/P: Treatment provided - N/A Reason no ASA at D/C: Treatment provided - N/A Reason no statin as I/P: Treatment provided - N/A Reason no statin at D/C: Treatment provided - N/A VTE Core Measure Inpt VTE Proph given/why not?: Unfractionated heparin SQ
--- NOTE | 2017-02-03 07:52 | CARDIOLOGY CONSULTATION ---
DATE OF CONSULTATION: 01/31/2017 REQUESTING PHYSICIAN: Dr. Raymundo Graff. REASON FOR CONSULTATION: Non-ST elevation myocardial infarction. Dear Dr. Graff: Thank you for requesting cardiology consultation on Evelio with regards to his left arm and throat discomfort associated with running. As you know, he is a very pleasant 61-year-old gentleman who is otherwise very healthy, who runs on a regular basis 3-1/2 miles in a little over 30 minutes 3 days a week and he notes about a week ago during his run, he had some left forearm discomfort and after he stopped running, it went away. On Friday, he ran again, had forearm discomfort that radiated further up and when he took a shower after running, he noted he had a period of significant lightheadedness and dizziness like he felt like he might pass out. He did not feel any palpitations or fluttering with this episode. He tried to run yesterday. With running yesterday, he noticed not only arm discomfort and like a toothache kind of pain in his arm. He also described burning in his throat. This caused him to stop and subsequently, he came to the Emergency Room. In the Emergency Room, his EKG revealed sinus rhythm. There were no acute ST-T changes. His point of care troponin was positive and his labs troponin is also positive. With aspirin and heparin and beta blockers, he was angina free. He notes before last week, he was running on a regular basis. He had no anginal symptoms. He was able to climb a flight of stairs without any chest pain or chest pressure. He denies any lower extremity edema, PND, or orthopnea. He denies any bleeding, bruising, dark stools, black stools, fevers, chills, sweats, cough, or productive sputum. His appetite is stable. His weight is stable. He denies any symptoms of claudication. The rest of review of systems otherwise negative. PAST MEDICAL HISTORY: Diverticulitis. SOCIAL HISTORY: He is a lifetime nonsmoker. He has 5-6 cans of beer a week. He denies any drug use. He has a girlfriend. 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 OUTPATIENT MEDICATIONS: Include aspirin, vitamin D, multivitamin and vitamin E. ALLERGIES: No known drug allergies. FAMILY HISTORY: Dad had what sounds like a cardiomyopathy and had a pacemaker, but at the age of 94. Mom did not have any cardiac issues. He has siblings, none of whom have any cardiac issues. He does note that his paternal uncle did have heart disease and had a heart attack in his 70s. PHYSICAL EXAMINATION: GENERAL: He is awake, alert, and oriented x3. He is in no acute distress, well-appearing male, who looks stated age. VITAL SIGNS: Heart rate 68, respirations 16, blood pressure 115/69, and his pulse ox is 97% on room air. HEENNT: 2+ carotid upstrokes. No evidence of carotid bruits. Jugular venous pressure appeared normal. Sclerae is anicteric. His hearing is normal. LUNGS: Clear to auscultation bilaterally. No rales, rhonchi or wheezing. HEART: Regular rate and rhythm. No appreciable murmurs, rubs or gallops. ABDOMEN: Soft, nontender, and nondistended. Positive bowel sounds. EXTREMITIES: No clubbing, cyanosis or edema. PSYCHIATRIC: His affect appeared appropriate. NEUROLOGIC: He is awake, alert and oriented x3. DIAGNOSTIC STUDIES: EKG, normal sinus rhythm. Normal ECG. Chest x-ray, no active disease. LABORATORY STUDIES: Sodium 143. His BUN was 21 with a creatinine of 1.1. His lab troponin was 0.957. His AST and ALT are normal. His PTT this morning is 60.6 on heparin. His hemoglobin is 16.4 with a platelet count of 181. IMPRESSION: Non-ST elevation myocardial infarction with progressive anginal symptoms over the last week. As I discussed with Evelio given his progressive symptoms and throat discomfort yesterday with running, I recommend a cardiac catheterization to define his coronary anatomy. I discussed the risks and benefits of cardiac catheterization. Risks including, but not limited to bleeding or infection at the puncture site, damage to radial or femoral artery, risk of contrast-induced nephropathy, allergic reaction to contrast, and 1 in 1000 risk of heart attack, stroke or dying with the procedure were discussed. He wishes to proceed. The cathode washer at [facility] was notified and Dr. Lenz will plan to do the procedure this afternoon. From medical therapy standpoint, he is currently on aspirin 81 mg. He did receive metoprolol in the ER yesterday. I will add Toprol-XL 12.5 mg at bedtime as he is relatively bradycardic and does not have hypertension. He has been started on moderate intensity statin therapy. We will check a lipid profile and if he does need angioplasty and stenting, then he would require Plavix for years' duration. If there is a blood pressure issue as an outpatient, then low dose lisinopril can also be added. All this was discussed with the patient in detail. He understands the risks of the procedure and wishes to proceed. Thank you for allowing us to participate in his care.
--- NOTE | 2017-02-06 14:43 | Discharge Summary ---
Discharge Summary Date of Service Feb 01, 2017. Discharge Summary Admission Date: Jan 30, 2017 at 22:42 Discharge Date: Feb 01, 2017 Discharge Disposition: Home Principal Diagnosis: NSTEMI, CAD Problems/Secondary Diagnoses: None Procedures: Left heart catheterization summary of findings: Indication: NSTEMI Access: 6Fr Right Radial Artery Catheters: Seltzer, EBU 3.5 guide Findings: LM - Huge vessel, angiographically normal LAD - Large vessel, 99% focal stenosis in the mid segment just after take-off of 1st diagonal; distal luminal irregularities as vessel wraps around apex. Circumflex - Large caliber vessel, dominant, angiographically normal RCA - Small, non-dominant, luminal irregularities. LVEDP - 6 -- PCI -- Antithrombotic therapy: Heparin, Clopidogrel Procedure: LM cannulated with EBU 3.5 guide BMW wire passed across lesion into distal LAD Mid LAD lesion predilated with 3.0 compliant balloon and 3.0 NC balloon Dilated lesion stented with 4.0 x 23 Xience EASTON placed from 1st diagonal to just before 2nd diagonal. Stent post-dilated with 4.5 noncompliant balloon IC vasodilators administered for spasm Post procedure ARGELIA 3 flow, stent well expanded with minimal residual stenosis and no apparent cardiac complications. Arterial Closure: TR Band Summary: 1. NSTEMI 2. Severe single vessel coronary artery disease - 99% focal mid LAD stenosis - Other coronary arteries essentially angiographically normal 3. Normal intracardiac filling pressure 4. Successful PCI of mid LAD with 4.0 x 23 Xience EASTON (post-dilated with 4.5 NC balloon). Recommendations: Return to PCU for continued monitoring Loaded with Clopidogrel 600 mg in computer lab para professional Continue dual-antiplatelet therapy with ASA/Clopidogrel for 1 year Beta-fauzia, STEFANIA, Statin per Dr. Jorgensen Consult cardiac Rehab Hemodynamics Rest Ao: 98/69/82 Final Ao: 97/66/80 LV: 105/6 Recommendations PCI without planned CABG CHEST ONE VIEW PORTABLE CLINICAL HISTORY: Atypical chest pain COMPARISON STUDY: August 2011 FINDINGS: The cardiac and mediastinal contours are normal. There is no evidence of focal pulmonary consolidation. There is no evidence of failure. No pleural effusions are visualized. IMPRESSION: No active disease in the chest. Consultations: Cardiology Medication Reconciliation New Medications: Atorvastatin (Atorvastatin Calcium) 40 Mg Tab 40 MG PO HS for 30 Days, #30 TAB Clopidogrel Bisulfate (Clopidogrel) 75 Mg Tab 75 MG PO QAM for 30 Days, #30 TAB Metoprolol Succinate (Metoprolol Succinate ER) 25 Mg Tabcr 12.5 MG PO HS for 30 Days, #15 TAB Nitroglycerin (Nitrostat) 0.4 Mg/1 Tab Subl 0.4 MG SL UD PRN for Chest Pain, #15 TAB Continued Medications: Aspirin (Aspirin Ec) 81 Mg Tab 81 MG PO DAILY Cholecalciferol (Vitamin D3) 1,000 Unit Tab 1000 INTER.UNIT PO DAILY, TAB Multivitamins/Minerals (Mvi With Minerals) Tab 1 TAB PO DAILY, TAB Vitamin E (Vitamin E 400 Iu) 400 Unit Cap 400 INTER.UNIT PO DAILY, CAP Referrals At Discharge Follow up Referrals: [facility] General Referral - Within 2 Weeks with Carter Lenz MD Physician Referral - Within 1 Week with Dustin Paulino M.D. Discharge Exam Pt was doing well the day after his stent placement without chest pain. His ECG showed some persistent anterior lead TWIs, however he was asymptomatic, no arrhythmias on telemetry monitoring, and cardiology was not concerned about the ECG findings. Review of Systems: Constitutional: No fever Eyes: No worsening of vision ENT: No problem reported Respiratory: No shortness of breath Abdomen: No pain Musculoskeletal: No problem reported Genitourinary - Male: No problem reported Neurologic: No problem reported Psychiatric: No problem reported Endocrine: No problem reported Hematologic / Lymphatic: No problem reported Physical Exam: General Appearance: WD/WN, no apparent distress Eyes: normal inspection, sclerae normal ENT: hearing grossly normal, pharynx normal Neck: trachea midline Respiratory/Chest: lungs clear, normal breath sounds, no respiratory distress, no accessory muscle use Cardiovascular: regular rate, rhythm, no edema, no gallop, no JVD, no murmur , normal peripheral pulses Abdomen / GI: normal bowel sounds, non tender, soft, no organomegaly, no pulsatile mass Extremities: normal inspection (with bandage/dressing at right radial site c /d/i), no calf tenderness, no pedal edema Neurologic/Psychiatric: alert, normal mood/affect, oriented x 3 Skin: normal color, warm/dry, no rash Lymphatic: no adenopathy Hospital Course 61-year-old male presented to the emergency department complaining of chest burning radiating down his left arm with exertion while running. No known history of coronary artery disease or any other past medical history. His troponin was elevated upon admission at 1.0. His ECG did not show any acute ischemic changes at admission. NSTEMI- Cardiology consult appreciated -placed on a heparin drip initially prior to catheterization -was given nitroglycerin, ASA and morphine. -cardiology consult appreciated--> cardiac catheterization with findings of 99% stenosis of mid-LAD--> EASTON placed and loaded with Plavix -started on ASA, Plavix, high intensity statin (despite excellent lipid panel), and low dose beta fauzia -Is being referred to cardiac rehabilitation as an outpatient -Continue monitoring on telemetry for arrhythmias -Cardiology consultation appreciated and he will follow-up with Dr. Lenz in the office as per patient's wishes (saw Dr. Jorgensen in hospital and Dr. Lenz did his intervention) -discharged to home Total Time Spent: Greater than 30 minutes This includes examination of the patient, discharge planning, medication reconciliation, and communication with other providers. Discharge Instructions Please refer to the electronic Patient Visit Report (Discharge Instructions) for additional information. Follow-Up with PCP within 1 week With Cardiology in 2-3 weeks Additional Copies To Dustin Paulino M.D.; Carter Lenz MD
== END 2017-02-01 14:30 | disposition home or self-care (01) | DRG 247 ==
LOC: ENRESERVDT → ENRESERVTM → C.EDB 20:06 → C.2T 22:42
PROVIDERS: ADMIT Internal Medicine; ATTEND Family Medicine
PROC: 4A023N7 Measurement of Cardiac Sampling and Pressure, Left Heart, Percutaneous Approach (ICD-10-PCS; principal; 2017-01-31 13:46)
PROC: 027034Z Dilation of Coronary Artery, One Artery with Drug-eluting Intraluminal Device, Percutaneous Approach (ICD-10-PCS; principal; 2017-01-31 13:46)
PROC: B211YZZ Fluoroscopy of Multiple Coronary Arteries using Other Contrast (ICD-10-PCS; principal; 2017-01-31 13:46)
DX: I21.4 Non-ST elevation (NSTEMI) myocardial infarction (principal); I25.10 Atherosclerotic heart disease of native coronary artery without angina pectoris; Z51.81 Encounter for therapeutic drug level monitoring; Z79.82 Long term (current) use of aspirin; Z82.49 Family history of ischemic heart disease and other diseases of the circulatory system; Z83.3 Family history of diabetes mellitus